=== PATIENT | male | born 1980 | race African-American/Black ===

== ENCOUNTER → 2017-01-21 | Outpatient (CLI) | payer BC | END | disposition home or self-care (01) | LOC: CARD 10:27 | DX: I08.1 Rheumatic disorders of both mitral and tricuspid valves (principal); I31.3 Pericardial effusion (noninflammatory) ==

== ENCOUNTER → 2017-02-26 | Outpatient (CLI) | payer BC | END | disposition home or self-care (01) | LOC: RAD 08:59 | DX: R05 Cough (principal); R91.8 Other nonspecific abnormal finding of lung field ==

== ENCOUNTER 2017-03-11 09:00 | Inpatient (IN) | payer BC ==
[~2017-03-11] VITALS: Ht 172.7 cm; Wt 121.6 kg
[2017-03-11 09:18] VITALS: BP 150/92
[2017-03-11 09:47] LABS: BASO # 0.1 10*3/uL (0.0-0.1); BASO % 0.4 % (0.0-1.0); EOS # 0.1 10*3/uL (0.0-0.4); EOS % 0.7 % (1.0-4.0); HEMOGLOBIN 8.9 g/dl (14.0-18.0); IG # 0.1 10*3/uL (0.0-0.1); LYMPH # 0.9 10*3/uL (1.3-4.4); LYMPH % 6.3 % (27.0-41.0); MEAN CELL VOLUME 89.2 fl (80.0-94.0); MEAN CORPUSCULAR HGB 28.3 pg (27.0-31.0); MEAN CORPUSCULAR HGB CONC 31.8 g/dl (33.0-37.0); MEAN PLATELET VOLUME 8.3 fl (9.6-12.3); MONO % 7.3 % (3.0-9.0); NEUT # 11.8 10*3/uL (2.3-7.9); NEUT % 84.9 % (47.0-73.0); PLATELET COUNT AUTOMATED 628 10*3/uL (130-400); RED BLOOD COUNT 3.14 10*6/uL (4.50-5.90); RED CELL DISTRI WIDTH 13.3 % (0-14.5)
[2017-03-11] MEDS ORDERED: AMLODIPINE BESY1 TAB PO (10:00)
[2017-03-11] MEDS ORDERED: CLONIDINE0.2 MG PO (10:00)
[2017-03-11 10:01] LABS: BILIRUBIN, TOTAL 0.3 mg/dl (0.2-1.0); POTASSIUM 4.7 mmol/L (3.5-5.1)
[2017-03-11] MEDS ORDERED: TOUJEO300 U/ML SC (10:01)
[2017-03-11] MEDS ORDERED: CARVEDILOL25 MG PO (10:01)
[2017-03-11] MEDS ORDERED: LASIX40 MG PO (10:01)
[2017-03-11] MEDS ORDERED: D3-5050000 IU PO (10:02)
[2017-03-11] MEDS ORDERED: VITAMIN D-32000 UNI1 PO (10:03)
[2017-03-11] MEDS ORDERED: LEVOTHYROXINE0.05 MG PO (10:03)
[2017-03-11] MEDS ORDERED: SODIUM BICARBO650 MG PO (10:03)
[2017-03-11 10:50] VITALS: BP 143/74
[2017-03-11 11:30] VITALS: BP 157/79
[2017-03-11 11:40] VITALS: BP 157/79
[2017-03-11] MEDS ORDERED: CLONIDINE0.3 MG PO (12:00)
[2017-03-11] MEDS ORDERED: CYCLOBENZAPRINE10 MG PO (12:01)
[2017-03-11] MEDS ORDERED: VITAMIN D5000 UNIT PO (12:02)
[2017-03-11] MEDS ORDERED: TYLENOL EXTRA500 MG PO (12:04)
[2017-03-11 16:00] VITALS: BP 168/86
[2017-03-11 20:00] VITALS: BP 158/81
[2017-03-12] VITALS: BP 147/74
[2017-03-12 07:03] LABS: BASO # 0.1 10*3/uL (0.0-0.1); BASO % 0.5 % (0.0-1.0); EOS # 0.2 10*3/uL (0.0-0.4); EOS % 1.5 % (1.0-4.0); HEMATOCRIT 26.5 % (42.0-52.0); HEMOGLOBIN 8.3 g/dl (14.0-18.0); LYMPH # 1.1 10*3/uL (1.3-4.4); LYMPH % 9.6 % (27.0-41.0); MEAN CELL VOLUME 89.8 fl (80.0-94.0); MEAN CORPUSCULAR HGB 28.1 pg (27.0-31.0); MEAN CORPUSCULAR HGB CONC 31.3 g/dl (33.0-37.0); MEAN PLATELET VOLUME 8.6 fl (9.6-12.3); MONO # 1.1 10*3/uL (0.1-1.0); MONO % 9.6 % (3.0-9.0); NEUT # 9.2 10*3/uL (2.3-7.9); NEUT % 78.5 % (47.0-73.0); PLATELET COUNT AUTOMATED 602 10*3/uL (130-400); RED BLOOD COUNT 2.95 10*6/uL (4.50-5.90); RED CELL DISTRI WIDTH 13.2 % (0-14.5); WHITE BLOOD COUNT 11.7 10*3/uL (4.8-10.8)
[2017-03-12 07:19] LABS: ALBUMIN 1.6 gm/dl (3.1-4.5); BILIRUBIN, TOTAL 0.3 mg/dl (0.2-1.0); TOTAL PROTEIN 6.1 gm/dL (6.4-8.2)
[2017-03-12 07:26] LABS: THYROID STIM HORMONE (HS) 3.91 uIU/ml (0.358-4.75)
[2017-03-12 08:00] VITALS: BP 161/84
[2017-03-12 09:11] LABS: FOLIC ACID 6.55 ng/mL (>5.38); VITAMIN D, 25-HYDROXY 12.9 ng/mL (30-100)
[2017-03-12 12:00] VITALS: BP 148/81
[2017-03-12 16:00] VITALS: BP 133/74
[2017-03-12 20:00] VITALS: BP 148/82
[2017-03-13] VITALS: BP 143/78
[2017-03-13 06:20] LABS: BASO # 0.1 10*3/uL (0.0-0.1); BASO % 0.4 % (0.0-1.0); EOS # 0.3 10*3/uL (0.0-0.4); EOS % 2.2 % (1.0-4.0); HEMATOCRIT 25.8 % (42.0-52.0); IG # 0.1 10*3/uL (0.0-0.1); LYMPH # 1.1 10*3/uL (1.3-4.4); LYMPH % 9.8 % (27.0-41.0); MEAN CORPUSCULAR HGB 27.6 pg (27.0-31.0); MEAN PLATELET VOLUME 8.9 fl (9.6-12.3); MONO # 1.1 10*3/uL (0.1-1.0); MONO % 9.9 % (3.0-9.0); NEUT # 8.8 10*3/uL (2.3-7.9); NEUT % 77.2 % (47.0-73.0); PLATELET COUNT AUTOMATED 636 10*3/uL (130-400); RED CELL DISTRI WIDTH 13.1 % (0-14.5); WHITE BLOOD COUNT 11.4 10*3/uL (4.8-10.8)
[2017-03-13 06:44] LABS: POTASSIUM 5.1 mmol/L (3.5-5.1)
[2017-03-13 08:00] VITALS: BP 157/80
[2017-03-13] MEDS ORDERED: SODIUM BICARBO650 MG PO (09:50)
[2017-03-13] MEDS ORDERED: ACETAMINOPHEN-H1 TA2 PO (09:50)
[2017-03-13] MEDS ORDERED: DOXYCYCLINE100 MG PO (09:50)
[2017-03-13] MEDS ORDERED: CEPHALEXIN500 M1 PO (09:50)
[2017-03-13 12:00] VITALS: BP 166/82
[2017-03-13 16:00] VITALS: BP 148/82
== END 2017-03-13 18:21 | disposition home or self-care (01) | DRG 871 ==
LOC: ED 09:00 → 4E 11:05 → EDHOLD 11:05 → 4E 11:22
PROVIDERS: Internal Medicine; Registered Nurse
DX: A41.9 Sepsis, unspecified organism (principal); N17.0 Acute kidney failure with tubular necrosis; E43 Unspecified severe protein-calorie malnutrition; N18.5 Chronic kidney disease, stage 5; L03.116 Cellulitis of left lower limb; Z68.41 Body mass index [BMI] 40.0-44.9, adult; E11.22 Type 2 diabetes mellitus with diabetic chronic kidney disease; E11.319 Type 2 diabetes mellitus with unspecified diabetic retinopathy without macular edema; I12.9 Hypertensive chronic kidney disease with stage 1 through stage 4 chronic kidney disease, or unspecified chronic kidney disease; I80.9 Phlebitis and thrombophlebitis of unspecified site; E11.649 Type 2 diabetes mellitus with hypoglycemia without coma; E03.9 Hypothyroidism, unspecified; E55.9 Vitamin D deficiency, unspecified; D64.9 Anemia, unspecified; E11.65 Type 2 diabetes mellitus with hyperglycemia; D63.1 Anemia in chronic kidney disease; R26.9 Unspecified abnormalities of gait and mobility; E11.21 Type 2 diabetes mellitus with diabetic nephropathy; Z82.49 Family history of ischemic heart disease and other diseases of the circulatory system; Z83.3 Family history of diabetes mellitus; Z79.1 Long term (current) use of non-steroidal anti-inflammatories (NSAID); Z79.899 Other long term (current) drug therapy; Z79.4 Long term (current) use of insulin

== ENCOUNTER → 2017-07-08 | Outpatient (CLI) | payer BC ==
[~2017-07-08] MED LIST: ACETAMINOPHEN-H1 TA2 PO; AMLODIPINE BESY1 TAB PO; CARVEDILOL25 MG PO; CEPHALEXIN500 M1 PO; CLONIDINE0.2 MG PO; CLONIDINE0.3 MG PO; CYCLOBENZAPRINE10 MG PO; D3-5050000 IU PO; DOXYCYCLINE100 MG PO; LASIX40 MG PO; LEVOTHYROXINE0.05 MG PO; SODIUM BICARBO650 MG PO; TOUJEO300 U/ML SC; TYLENOL EXTRA500 MG PO; VITAMIN D-32000 UNI1 PO; VITAMIN D5000 UNIT PO
[2017-07-08 17:10] LABS: BASO # 0.1 10*3/uL (0.0-0.1); BASO % 0.6 % (0.0-1.0); EOS # 0.3 10*3/uL (0.0-0.4); EOS % 3.5 % (1.0-4.0); HEMATOCRIT 26.8 % (42.0-52.0); HEMOGLOBIN 8.4 g/dl (14.0-18.0); LYMPH # 1.4 10*3/uL (1.3-4.4); LYMPH % 13.7 % (27.0-41.0); MEAN CELL VOLUME 88.7 fl (80.0-94.0); MEAN CORPUSCULAR HGB 27.8 pg (27.0-31.0); MEAN CORPUSCULAR HGB CONC 31.3 g/dl (33.0-37.0); MEAN PLATELET VOLUME 8.5 fl (9.6-12.3); MONO # 0.8 10*3/uL (0.1-1.0); MONO % 7.8 % (3.0-9.0); NEUT # 7.3 10*3/uL (2.3-7.9); NEUT % 74.1 % (47.0-73.0); PLATELET COUNT AUTOMATED 404 10*3/uL (130-400); RED BLOOD COUNT 3.02 10*6/uL (4.50-5.90); RED CELL DISTRI WIDTH 14.1 % (0-14.5); WHITE BLOOD COUNT 9.9 10*3/uL (4.8-10.8)
== END | disposition home or self-care (01) ==
LOC: LAB 16:55
PROVIDERS: Family Medicine Adult Medicine
DX: J40 Bronchitis, not specified as acute or chronic (principal); R09.89 Other specified symptoms and signs involving the circulatory and respiratory systems; J02.9 Acute pharyngitis, unspecified

== ENCOUNTER → 2017-09-02 | Outpatient (CLI) | payer OTHER ==
--- NOTE | ~2017-09-02 | PF ---
[place], [place] PULMONARY FUNCTION TEST [id number] UNIT #: [id number] ROOM: DOCTOR: JAMARI DE LA TORRE MD,LEO BIRTHDATE: [birth year] DOS: 09/02/2017 BRIEF HISTORY: The patient was noted as a 37-year-old -Irish male with height of 68 inches, weight 255 pounds, BMI 38.8. The patient was reported symptoms of dyspnea with exertion and nonproductive cough. There were no past tobacco use reported. SPIROMETRY: The FVC was recorded as 2.92 liters, 71% predicted value, mildly decreased. There were no postbronchodilator improvement noted clinical significance. FEV1 was noted at 2.31 liters as 68% predicted value, moderately decreased with 12% partial improvement occurred post-bronchodilator test for this patient, which were noted minimal improvement postbronchodilator. Ratio of FEV1/FVC was recorded 79%. The patient's lung volumes, thoracic gas volume was recorded as 43%, residual volume 58%, total lung capacity 61%. Zktkbyii-ex-ljlsih restrictive airway pattern was suggested in the lung volumes. The patient's lung diffusion was also noted moderately decreased without correction of carbon monoxide or hemoglobin values. Because of the normal alveolar volume for this patient, possibility of pulmonary disease such as interstitial lung disease, pulmonary hypertension or anemia would be considered in the differential with current reduction of lung diffusion. The patient's airway resistance and passive conductance were noted normal with partial improvement post-bronchodilator test. OVERALL IMPRESSION: Evidence of moderate restrictive lung disease was noted with associated mild obstructive lung disease for the patient would be considered. Reduced lung diffusion capacity. The patient's current pulmonary function test to be correlated to the patient's clinical history and radiology data. LEO KAUFFMAN MD CM:PFREPORT:PULMONARY FUNCTION TEST [id number] LEO DE LA TORRE MD
== END ==
LOC: CP 10:59
DX: J44.9 Chronic obstructive pulmonary disease, unspecified (principal)

== ENCOUNTER → 2018-08-18 | Outpatient (CLI) | payer OTHER, MEDICARE ==
[2018-08-19 08:10] LABS: IMMUNOGLOBULIN M, QNT 32 mg/dL (20-172)
[2018-08-19 16:10] LABS: ANGIOTENSIN-CONVERTING ENZYME 47 U/L (14-82); IGG SUBCLASS 1 1021 mg/dL (248-810); IGG SUBCLASS 2 622 mg/dL (130-555); IGG SUBCLASS 3 >221 mg/dL (15-102); IGG SUBCLASS 4 66 mg/dL (2-96); IMMUNOGLOBULIN G, QNT 1819 mg/dL (700-1600)
== END | disposition home or self-care (01) ==
LOC: LAB 08:20
PROVIDERS: Internal Medicine Critical Care Medicine
DX: Z01.818 Encounter for other preprocedural examination (principal)

== ENCOUNTER → 2018-11-17 | Outpatient (CLI) | payer OTHER, MEDICARE | END | disposition home or self-care (01) | LOC: CT 11-10 10:00 | DX: J18.1 Lobar pneumonia, unspecified organism (principal) ==

== ENCOUNTER → 2019-11-11 | Outpatient (CLI) | payer OTHER, MEDICARE, MEDICAID ==
[2019-11-11 14:33] LABS: BASO % 0.5 % (0.0-1.0); EOS # 0.2 10*3/uL (0.0-0.4); EOS % 3.3 % (1.0-4.0); HEMATOCRIT 30.7 % (42.0-52.0); HEMOGLOBIN 9.6 g/dl (14.0-18.0); LYMPH # 1.3 10*3/uL (1.3-4.4); LYMPH % 18.9 % (27.0-41.0); MEAN CORPUSCULAR HGB 29.1 pg (27.0-31.0); MEAN CORPUSCULAR HGB CONC 31.3 g/dl (33.0-37.0); MEAN PLATELET VOLUME 9.3 fl (9.6-12.3); MONO # 0.5 10*3/uL (0.1-1.0); NEUT # 4.6 10*3/uL (2.3-7.9); NEUT % 69.1 % (47.0-73.0); PLATELET COUNT AUTOMATED 334 10*3/uL (130-400); RED CELL DISTRI WIDTH 14.2 % (0-14.5); WHITE BLOOD COUNT 6.6 10*3/uL (4.8-10.8)
[2019-11-12 22:05] LABS: B PERTUSSIS IGA AB <1.0 index (0.0-0.9); B PERTUSSIS IGG AB 1.83 index (0.00-0.94); B PERTUSSIS IGM AB <1.0 index (0.0-0.9)
== END | disposition home or self-care (01) ==
LOC: LAB 13:59
PROVIDERS: Family Medicine
DX: J90 Pleural effusion, not elsewhere classified (principal); J98.11 Atelectasis; E11.9 Type 2 diabetes mellitus without complications

== ENCOUNTER → 2021-07-31 | Outpatient (CLI) | payer OTHER, MEDICARE ==
[~2021-07-31] MED LIST changes: +GLUCOTROL10 MG PO; +HYDRALAZINE HYD50 MG PO; +LIPITOR40 MG PO
== END | disposition home or self-care (01) ==
LOC: CARD 00:15
PROVIDERS: ATTEND Family Medicine
DX: R06.02 Shortness of breath (principal); N18.4 Chronic kidney disease, stage 4 (severe); R53.81 Other malaise